=== PATIENT | female | born 1995 | race Caucasian/White ===

== ENCOUNTER 2023-04-13 20:00 | Inpatient (IN) | payer BC ==
[2023-04-13] MEDS ORDERED: Nalbuphine HCl 10 MG/ 1ML Amp IVPUSH PRN (20:26)
[2023-04-13] MEDS ORDERED: Sodium Chloride 0.9% 10 ML Syringe FLUSH PRN (20:26)
[2023-04-13] MEDS ORDERED: Ondansetron 4 MG/2 ML SDV IVPUSH PRN (20:26)
[2023-04-13] MEDS ORDERED: Lidocaine 1% 50 ML MDV INJECT PRN (20:26)
[2023-04-13 20:47] LABS: BASOPHILS PERCENT AUTO 0.4 % (0.0-1.0); EOSINOPHILS PERCENT AUTO 0.3 % (0.0-6.0); HEMATOCRIT 39.1 % (37.0-47.0); HEMOGLOBIN 13.4 gm/dl (12.0-16.0); IMMATURE GRAN ABSOLUTE AUTO 0.05 K/mm3 (0.00-0.05); IMMATURE GRAN PERCENT AUTO 0.5 % (0.0-0.4); LYMPHOCYTES ABSOLUTE AUTO 2.2 K/mm3 (1.0-4.8); LYMPHOCYTES PERCENT AUTO 21.9 % (24.0-44.0); MEAN CORPUSCULAR HGB CONC 34.3 g/dl (32.0-36.0); MEAN CORPUSCULAR VOLUME 90.5 fl (83.0-99.0); MEAN PLATELET VOLUME 12.6 fl (9.4-12.3); MONOCYTES PERCENT AUTO 9.5 % (0.0-8.0); NEUTROPHILS ABSOLUTE AUTO 6.8 K/mm3 (1.8-7.7); NEUTROPHILS PERCENT AUTO 67.4 % (41.0-71.0); PLATELET COUNT,PLT 105 K/mm3 (150-400); RED BLOOD CELL COUNT 4.32 M/mm3 (4.10-5.30); WHITE BLOOD CELL COUNT,WBC 10.11 K/mm3 (3.9-11.3)
[2023-04-13] MEDS: Lactated Ringers 1,000 ML IV SCH ×2 (21:45→23:21)
[2023-04-13] MEDS ORDERED: fentaNYL 100 MCG/2 ML SDV EPIDUR PRN (22:15)
[2023-04-13] MEDS ORDERED: ePHEDrine 50 MG/ML SDV IVPUSH PRN (22:15)
[2023-04-13] MEDS ORDERED: diphenhydrAMINE 50 MG/ML SDV IVPUSH PRN (22:15)
[2023-04-13] MEDS: Bupivacaine/fentaNYL/NS 100 ML Bag EPIDUR PRN (22:55)
[2023-04-14] MEDS: Lactated Ringers 1,000 ML IV SCH ×3 (00:15→07:55)
[2023-04-14 00:49] LABS: ANION GAP 14.9 (5-15); CALCIUM 8.4 mg/dL (8.5-10.1); EST CRCL DRUG DOSING (CG) 69.9 mL/min; POTASSIUM,K 3.9 mEq/L (3.5-5.1)
[2023-04-14 01:14] LABS: CREATININE,URINE RAND 62.7 mg/dL (30.0-125.0)
[2023-04-14 01:15] LABS: PROTEIN,URINE RANDOM < 6.0 mg/dL (0.0-11.8)
[2023-04-14] MEDS ORDERED: Oxytocin/Lactated Ringers 30 UNIT/500 ML BAG IV SCH (01:30)
[2023-04-14] MEDS: Sodium Chloride 0.9% 10 ML Syringe FLUSH SCH (02:42)
[2023-04-14] MEDS ORDERED: Bupivacaine 0.25% 10 ML SDV ONE (03:00)
[2023-04-14] MEDS: Bupivacaine/fentaNYL/NS 100 ML Bag EPIDUR PRN (06:56)
[2023-04-14] MEDS ORDERED: Tranexamic Acid 1,000 MG/10 ML Vial ONE (08:37)
[2023-04-14] MEDS ORDERED: Acetaminophen 325 MG Tab PO PRN (09:11)
[2023-04-14] MEDS ORDERED: Witch Hazel Medicated Pads 40/Jar TOP PRN (09:11)
[2023-04-14] MEDS ORDERED: Docusate Sodium 100 MG Cap PO PRN (09:11)
[2023-04-14] MEDS ORDERED: Ibuprofen 800 MG Tab PO PRN (09:11)
[2023-04-14] MEDS ORDERED: Benzocaine/Menthol 20%-0.5% Spray 78 GM Cannister TOP PRN (09:11)
[2023-04-14] MEDS ORDERED: Misoprostol 200 MCG Tab ONE (09:55)
[2023-04-14] MEDS ORDERED: Methylergonovine 0.2 MG/1 ML Amp IM PRN (10:09)
[2023-04-14] MEDS ORDERED: Tranexamic Acid 1,000 MG/10 ML Vial IV ONE (10:10)
[2023-04-14] MEDS: Lactated Ringers 1,000 ML IV ONE ×2 (10:20→11:54)
[2023-04-14] MEDS ORDERED: Oxytocin/Lactated Ringers 30 UNIT/500 ML BAG IV STA (10:23)
[2023-04-14 10:35] LABS: HEMATOCRIT 31.4 % (37.0-47.0); HEMOGLOBIN 10.8 gm/dl (12.0-16.0); MEAN CORPUSCULAR HEMOGLOBIN 31.6 pg (28.0-32.0); MEAN CORPUSCULAR HGB CONC 34.4 g/dl (32.0-36.0); MEAN CORPUSCULAR VOLUME 91.8 fl (83.0-99.0); MEAN PLATELET VOLUME 12.3 fl (9.4-12.3); PLATELET COUNT,PLT 77 K/mm3 (150-400); RED BLOOD CELL COUNT 3.42 M/mm3 (4.10-5.30); WHITE BLOOD CELL COUNT,WBC 15.26 K/mm3 (3.9-11.3)
[2023-04-14] MEDS ORDERED: ceFAZolin 2 GM in Sodium Chloride 0.9% 50 ML IV SCH (10:45)
[2023-04-14 10:58] LABS: PROTHROMBIN TIME 9.8 SECONDS (9.7-12.0)
[2023-04-14 10:59] LABS: PTT,PARTIAL THROMBOPLSTIN TIME 26.8 SECONDS (21.7-31.4)
[2023-04-14] MEDS: ceFAZolin 2 GM in Sodium Chloride 0.9% 50 ML IV SCH ×2 (11:14→19:50)
[2023-04-14 11:22] LABS: INR < 0.93
[2023-04-14] MEDS ORDERED: Ondansetron 4 MG/2 ML SDV IVPUSH PRN (11:37)
[2023-04-14 16:17] LABS: HEMATOCRIT 29.3 % (37.0-47.0); HEMOGLOBIN 10.1 gm/dl (12.0-16.0); MEAN CORPUSCULAR HEMOGLOBIN 31.3 pg (28.0-32.0); MEAN CORPUSCULAR HGB CONC 34.5 g/dl (32.0-36.0); MEAN CORPUSCULAR VOLUME 90.7 fl (83.0-99.0); MEAN PLATELET VOLUME 13.1 fl (9.4-12.3); PLATELET COUNT,PLT 73 K/mm3 (150-400); RED BLOOD CELL COUNT 3.23 M/mm3 (4.10-5.30); WHITE BLOOD CELL COUNT,WBC 18.48 K/mm3 (3.9-11.3)
[2023-04-15 05:14] LABS: HEMATOCRIT 24.9 % (37.0-47.0); HEMOGLOBIN 8.6 gm/dl (12.0-16.0); MEAN CORPUSCULAR HEMOGLOBIN 31.4 pg (28.0-32.0); MEAN CORPUSCULAR HGB CONC 34.5 g/dl (32.0-36.0); MEAN CORPUSCULAR VOLUME 90.9 fl (83.0-99.0); MEAN PLATELET VOLUME 12.3 fl (9.4-12.3); PLATELET COUNT,PLT 69 K/mm3 (150-400); RED BLOOD CELL COUNT 2.74 M/mm3 (4.10-5.30); WHITE BLOOD CELL COUNT,WBC 12.73 K/mm3 (3.9-11.3)
[2023-04-15] MEDS: Ferrous Sulfate 324 MG Tab.EC PO SCH (16:08)
[2023-04-16] MEDS: Ferrous Sulfate 324 MG Tab.EC PO SCH (10:08)
[2023-04-16] MEDS: Sodium Chloride 0.9% 10 ML Syringe FLUSH SCH (10:08)
== END 2023-04-16 11:30 | disposition home or self-care (01) | DRG 560 ==
LOC: JD.OBCHECK 20:00 → JD.OB 20:02 → JD.OBCHECK 20:25 → JD.OB 20:26 → OBSVTOIN 04-14 08:46 → JD.OB 04-14 08:48
PROVIDERS: ADMIT Obstetrics & Gynecology; ATTEND Obstetrics & Gynecology
PROC: 10E0XZZ Delivery of Products of Conception, External Approach (ICD-10-PCS; principal; 2023-04-14)
PROC: 3E0R3BZ Introduction of Anesthetic Agent into Spinal Canal, Percutaneous Approach (ICD-10-PCS; 2023-04-14)
PROC: 00HU33Z Insertion of Infusion Device into Spinal Canal, Percutaneous Approach (ICD-10-PCS; 2023-04-14)
PROC: 3E033VJ Introduction of Other Hormone into Peripheral Vein, Percutaneous Approach (ICD-10-PCS; 2023-04-14)
DX: O24.420 Gestational diabetes mellitus in childbirth, diet controlled (principal); Z37.0 Single live birth; D69.6 Thrombocytopenia, unspecified; D62 Acute posthemorrhagic anemia; O99.12 Other diseases of the blood and blood-forming organs and certain disorders involving the immune mechanism complicating childbirth; O72.0 Third-stage hemorrhage; O70.0 First degree perineal laceration during delivery; O99.03 Anemia complicating the puerperium; Z3A.40 40 weeks gestation of pregnancy
CPT/HCPCS: 01967; 36415; 51701; 51702; 59025; 59409; 80048; 82570; 82947; 84156; 84450; 84460; 85025; 85027; 85610; 85730; 86592; 86850; 86900; 86901; A9270-GY; C1758; J0690; J2210; J3010; J3490; J7120; J7999